=== PATIENT | male | born 1955 | race African-American/Black ===

== ENCOUNTER 2016-05-15 10:46 | Emergency (ER) | payer OTHER ==
[~2016-05-15] VITALS: Ht 180.3 cm; Wt 93.2 kg
[~2016-05-15 10:46] MED LIST: ASPI-1093 PO
[2016-05-15] MEDS ORDERED: [UNRECOGNIZED DRUG - REMARK] PO (10:58)
[2016-05-15] MEDS ORDERED: HYDROmorphone 2 MG/ML SYRINGE IM ONE (11:45)
[2016-05-15 13:06] VITALS: BP 140/90
== END 2016-05-15 14:17 | disposition home or self-care (01) ==
LOC: EMS 10:48
DX: M62.838 Other muscle spasm (principal); I11.9 Hypertensive heart disease without heart failure; I25.10 Atherosclerotic heart disease of native coronary artery without angina pectoris; F17.210 Nicotine dependence, cigarettes, uncomplicated
CPT/HCPCS: 70450; 96372; 99284; J1170

== ENCOUNTER 2018-01-28 07:40 | Emergency (ER) | payer OTHER ==
[~2018-01-28] VITALS: Ht 180.3 cm; Wt 100.0 kg
[~2018-01-28 07:40] MED LIST changes: -ASPI-1093 PO; +ASPI-1182 PO; +[UNRECOGNIZED DRUG - REMARK] PO
[2018-01-28] MEDS ORDERED: OLAN10TA3 PO (07:54)
[2018-01-28] MEDS ORDERED: HYDR25TA PO (07:54)
[2018-01-28] MEDS ORDERED: TERB250 PO (07:54)
[2018-01-28] MEDS ORDERED: GABA-531 PO (07:59)
[2018-01-28] MEDS ORDERED: RIVA20TA PO (07:59)
[2018-01-28] MEDS ORDERED: KDUR20 PO (07:59)
[2018-01-28] MEDS ORDERED: FERR-89 PO (07:59)
[2018-01-28] MEDS ORDERED: FURO20 PO (07:59)
[2018-01-28] MEDS ORDERED: MET500 PO (08:00)
[2018-01-28] MEDS ORDERED: FentaNYL CITRATE-PF 100 MCG/2 ML VIAL IVP ONE ×2 (09:00→13:45)
[2018-01-28] MEDS ORDERED: ONDANSETRON HCL 4 MG/2 ML VIAL IVP ONE (09:00)
[2018-01-28 09:54] LABS: BASOPHILS % (AUTO) 1.2 % (0.0-2.0); EOSINOPHILS % (AUTO) 0.2 % (1.0-6.0); HEMATOCRIT 37.6 % (41-53); HEMOGLOBIN 12.8 g/dL (13.5-17.5); LYMPHOCYTES # (AUTO) 1.3 K/uL (1.0-4.8); MEAN CORPUSCULAR HEMOGLOBIN 30.5 pg (26.0-34.0); MEAN CORPUSCULAR VOLUME 90 fL (80-100); MONOCYTES # (AUTO) 0.8 K/uL (0.1-1.0); MONOCYTES % (AUTO) 9.7 % (2.0-9.0); NEUTROPHILS # (AUTO) 5.8 K/uL (1.8-7.7); NEUTROPHILS % (AUTO) 72.9 % (40.0-70.0); PLATELET COUNT (AUTO) 333 K/uL (150-450); RED BLOOD CELL COUNT(AUTO) 4.19 MIL/uL (4.50-5.90)
[2018-01-28 10:03] LABS: ANION GAP 12 mmol/L (8-16); CALCIUM, TOTAL 9.4 mg/dL (8.8-10.5); CARBON DIOXIDE 27 mmol/L (22-29); CHLORIDE 104 mmol/L (98-107); CREATININE 1.05 mg/dL (0.60-1.30); GLOMERULAR FILTR. RATE CALC > 60 mL/min (>60); GLUCOSE,RANDOM 104 mg/dL (70-110); POTASSIUM 3.5 mmol/L (3.5-5.1); SODIUM SERUM 143 mmol/L (136-145); UREA NITROGEN, BLOOD 19 mg/dL (7-18)
[2018-01-28 10:06] LABS: PROTHROMBIN TIME 10.8 SEC (9.4-11.6)
[2018-01-28 10:10] LABS: ALANINE AMINOTRANSFERASE 26 U/L (12-78); ALBUMIN 3.5 g/dL (3.4-5.0); ALKALINE PHOSPHATASE 77 U/L (46-116); ASPARTATE AMINOTRANSFERASE 30 U/L (15-37); BILIRUBIN,TOTAL 0.8 mg/dL (0.1-1.0); LIPASE 102 U/L (73-393); TOTAL PROTEIN, SERUM 7.3 g/dL (6.4-8.2)
[2018-01-28 10:13] LABS: B-TYPE NATRIURETIC PEPTIDE 13 pg/mL (0-100)
[2018-01-28 11:23] LABS: APPEARANCE,URINE CLOUDY (CLEAR); BILIRUBIN,URINE NEGATIVE (NEGATIVE); GLUCOSE, URINE (UA) NEGATIVE (NEGATIVE); KETONES,URINE NEGATIVE (NEGATIVE); LEUKOCYTE ESTERASE ,URINE MODERATE (NEGATIVE); NITRATE,URINE POSITIVE (NEGATIVE); OCCULT BLOOD,URINE NEGATIVE (NEGATIVE); PROTEIN,URINE NEGATIVE (NEGATIVE)
[2018-01-28 11:35] LABS: BACTERIA,URINE Many /HPF (None Seen); RBC,URINE 0-2 /HPF (0-2)
[2018-01-28] MEDS ORDERED: CefTRIAXone SODIUM 1 GM in DEXTROSE 5%-WATER 10 ML IV ONE (14:30)
[2018-01-28 18:28] VITALS: BP 124/72
== END 2018-01-28 19:20 | disposition short-term general hospital (02) ==
LOC: EMS 07:41
DX: M25.562 Pain in left knee (principal); R53.1 Weakness; M48.00 Spinal stenosis, site unspecified; I10 Essential (primary) hypertension; I25.10 Atherosclerotic heart disease of native coronary artery without angina pectoris; F17.210 Nicotine dependence, cigarettes, uncomplicated; Z86.73 Personal history of transient ischemic attack (TIA), and cerebral infarction without residual deficits; Z86.011 Personal history of benign neoplasm of the brain; Z79.82 Long term (current) use of aspirin; Z79.01 Long term (current) use of anticoagulants; Z79.899 Other long term (current) drug therapy; W06.XXXA Fall from bed, initial encounter; Y93.89 Activity, other specified; Y92.098 Other place in other non-institutional residence as the place of occurrence of the external cause; Y99.8 Other external cause status
CPT/HCPCS: 36415; 71045; 73503; 73552; 73562; 80053; 81001; 83605; 83690; 83880; 84484; 85025; 85610; 85730; 87077; 87086; 87186; 93005; 93926; 93971; 96374; 96375; 96376; 99285; J0696; J2405; J3010; J7060